=== PATIENT | female | born 1990 | race Caucasian/White ===

== ENCOUNTER 2023-12-25 11:55 | Emergency (ER) | payer OTHER ==
[2023-12-25 13:03] LABS: #Basophils 0.1 10x3/uL (0.0-0.2); #Eosinphils 0.2 10x3/uL (0.0-0.5); #Monocytes 0.5 10x3/uL (0.0-1.1); #Neutrophils 4.7 10x3/uL (1.5-8.4); %Basophils 0.8 % (0.0-2.0); %Eosinophils 2.1 % (0.0-6.0); %Lymphocytes 28.5 % (18.0-47.0); %Monocytes 6.5 % (0.0-10.0); %Neutrophils 61.8 % (40.0-75.0); Hematocrit 43.4 % (34.9-44.5); Hemoglobin 13.9 g/dL (12.0-15.5); Mean Corpuscular Hemoglobin 26.2 pg (27.0-33.0); Mean Corpuscular Volume 81.9 fl (81.6-98.3); Mean Platelet Volume 11.3 fl (7.4-10.4); Platelet Count 240 10x3/uL (150-450); RBC Distribution Width 13.7 % (11.5-14.5); White Blood Cell (WBC) Count 7.5 10x3/uL (3.5-10.5)
[2023-12-25] MEDS ORDERED: Magnesium 2 GM/50 ML BAG (IN WATER) ONE (13:09)
[2023-12-25 13:19] LABS: ALT (SGPT) 27 U/L (8-55); AST (SGOT) 24 U/L (5-34); Albumin 4.6 g/dL (3.5-5.0); Alkaline Phosphatase 91 U/L (40-110); Anion Gap 15 mmol/L (10-20); BUN (Urea Nitrogen) 12 mg/dL (7.0-18.7); Bilirubin, Total 0.2 mg/dL (0.2-1.2); Calc. Creatinine Clearance 0 mL/min (70-130); Calcium 9.2 mg/dL (7.8-10.44); Carbon Dioxide 22 mmol/L (22-29); Chloride 108 mmol/L (98-107); Estimated GFR 109; Globulin 3.2 g/dL (2.4-3.5); Glucose 94 mg/dL (70-105); Protein, Total 7.8 g/dL (6.0-8.3); Sodium 141 mmol/L (136-145)
[2023-12-25 13:40] LABS: BHCG - Serum Negative (NEGATIVE); Pregs Control Background? CLEAR/WHITE (CLR/WHITE); Pregs Control Bar Appear? YES (CONTROL BAR)
[2023-12-25] MEDS ORDERED: Iopamidol 370 76% 100 ML VIAL ONE (14:42)
== END 2023-12-25 16:40 | disposition home or self-care (01) ==
LOC: CSHERS 11:55
DX: R51.9 Headache, unspecified (principal)
CPT/HCPCS: 70496; 70498; 80053; 84703; 85025; 86140; 96365; J3475; Q9967

== ENCOUNTER 2024-07-10 08:56 | Emergency (ER) | payer MEDICAID ==
[2024-07-10] MEDS ORDERED: Ondansetron ODT 4 MG TAB ONE (09:35)
== END 2024-07-10 09:43 | disposition home or self-care (01) ==
LOC: CSHERS 08:56
DX: O99.612 Diseases of the digestive system complicating pregnancy, second trimester (principal); K42.9 Umbilical hernia without obstruction or gangrene; Z3A.14 14 weeks gestation of pregnancy
CPT/HCPCS: 99283; Q0162